=== PATIENT | female | born 1965 | race American Indian/Alaskan Native ===

== ENCOUNTER 2017-08-06 05:56 | Day surgery (SDC) | payer BC, OTHER ==
[~2017-08-06 05:56] MED LIST: APRESOLINE IV PRN; LACTATED RINGERS 1,000 ML IV SCH; MYLICON PO PRN; REGLAN IV PRN; ZOFRAN IV PRN
[2017-08-06] MEDS ORDERED: TRANSDERM-SCOP TD SCH (07:00)
[2017-08-06] MEDS ORDERED: FLAGYL 500 MG/100 ML 500 MG/100 ML BAG IV NR (07:00)
[2017-08-06] MEDS ORDERED: LOVENOX SUB-Q NR (07:00)
[2017-08-06] MEDS ORDERED: ANCEF/STERILE WATER 2 GM/20 ML 2 GM/20 ML SYRINGE IV NR (07:00)
[2017-08-06] MEDS ORDERED: PEPCID IV SCH (07:05)
[2017-08-06] MEDS ORDERED: DIPRIVAN 10 MG/ML IV ONE (07:08)
[2017-08-06] MEDS ORDERED: DILAUDID ONE (07:09)
[2017-08-06] MEDS ORDERED: XYLOCAINE MPF 2% ONE (07:09)
[2017-08-06] MEDS: ZOFRAN IV NR ×2 (07:13→09:39)
[2017-08-06] MEDS ORDERED: ZEMURON IV ONE (07:15)
[2017-08-06] MEDS ORDERED: SUBLIMAZE ONE (07:18)
[2017-08-06] MEDS ORDERED: DILAUDID IV PRN (07:22)
--- NOTE | 2017-08-06 07:22 | Anesthesia Consultation ---
Anesthesia Consult and Med Hx Date of service: 08/06/17 - Airway Anesthetic Teeth Evaluation: Good ROM Head & Neck: Adequate Mental/Hyoid Distance: Adequate Mallampati Class: Class I Intubation Access Assessment: Good - Pulmonary Exam CTA: Yes - Cardiac Exam Cardiac Exam: RRR - Pre-Operative Health Status ASA Pre-Surgery Classification: ASA3 Proposed Anesthetic Plan: General - Pulmonary Hx Smoking: No Hx Sleep Apnea: No (SLEEP STUDY NEG) - Central Nervous System Hx Back Pain: Yes Hx Psychiatric Problems: Yes - Gastrointestinal Hx Ulcer: Yes (PEPTIC ULCER DX) - Hematic Hx Anemia: Yes - Other Systems Hx Alcohol Use: No Hx Substance Use: No Hx Cancer: No - Additional Comments Anesthesia Medical History Comments: patient indicates that 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
--- NOTE | 2017-08-06 07:22 | Anesthesia Day of Surgery ---
Anesthesia Day of Surgery - Day of Surgery Patient Examined: Yes Patient H&P Reviewed: Yes Patient is NPO: Yes
[2017-08-06] MEDS ORDERED: MARCAINE 0.5% 30 ML INFILTRATI ONE (07:23)
[2017-08-06] MEDS ORDERED: XYLOCAINE 1% 20 mL ONE (07:24)
[2017-08-06] MEDS ORDERED: NACL 0.9% IR ONE (07:27)
[2017-08-06] MEDS ORDERED: MARCAINE 0.5% INFILTRATI ONE (07:27)
[2017-08-06] MEDS ORDERED: XYLOCAINE 1% 20 mL INFILTRATI ONE (07:27)
[2017-08-06] MEDS ORDERED: DECADRON ONE (08:01)
[2017-08-06] MEDS ORDERED: ROBINUL ONE (08:19)
[2017-08-06] MEDS ORDERED: NEOSTIGMINE ONE (08:19)
[2017-08-06] MEDS ORDERED: LACTATED RINGERS 1,000 ML ONE (08:21)
[2017-08-06] MEDS ORDERED: ePHEDrine SULFATE ONE (08:22)
[2017-08-06] MEDS ORDERED: TORADOL ONE (08:30)
--- NOTE | 2017-08-06 08:47 | Discharge Summary ---
Providers - Providers Date of Admission: 08/06/17 Date of discharge: 08/06/17 Attending physician: ENID CARBALLO Primary care physician: ALONDRA LEIGH Hospitalization Reason for admission: abdominal pain Condition: Good Pertinent studies: None Procedures: Diagnostic lap with Lysis of adhesions Disposition: - TO HOME OR SELFCARE Core Measure Documentation - Palliative Care Palliative Care/ Comfort Measures: Not Applicable - Core Measures Any of the following diagnoses?: none Exam - Constitutional General appearance: Present: no acute distress - EENT Eyes: Present: PERRL, EOM intact ENT: hearing intact, clear oral mucosa, dentition normal - Neck Neck: Present: supple, normal ROM - Respiratory Respiratory effort: normal Respiratory: bilateral: CTA - Cardiovascular Rhythm: regular - Extremities Extremities: no ischemia, pulses intact Peripheral Pulses: within normal limits - Abdominal General gastrointestinal: Present: soft, non-tender - Rectal Rectal Exam: deferred - Integumentary Integumentary: Present: clear, warm, dry - Musculoskeletal Musculoskeletal: strength equal bilaterally - Psychiatric Psychiatric: appropriate mood/affect Plan Follow up with: ALONDRA LEIGH MD [Primary Care Provider] - 7 Days
[2017-08-06] MEDS ORDERED: NORCO 5/325 PO NR (09:45)
[2017-08-06 10:18] VITALS: BP 128/64
--- NOTE | 2017-08-06 16:03 | Post Anesthesia Evaluation ---
- Post Anesthesia Evaluation Patient Participated: Yes Airway Patent: Yes Stable Respiratory Function: Yes Nausea/Vomiting: No Temp > 96.8F: Yes Pain Manageable: Yes Adequeate Hydration: Yes Anesthesia Complications: No
[2017-08-07] MEDS ORDERED: LOVENOX SUB-Q SCH (10:00)
== END 2017-08-06 10:30 | disposition home or self-care (01) ==
LOC: OR 05:56
PROVIDERS: ATTEND Specialist
DX: K66.0 Peritoneal adhesions (postprocedural) (postinfection) (principal); E11.9 Type 2 diabetes mellitus without complications; K59.00 Constipation, unspecified; M79.7 Fibromyalgia; K27.9 Peptic ulcer, site unspecified, unspecified as acute or chronic, without hemorrhage or perforation; Z88.5 Allergy status to narcotic agent; Z88.8 Allergy status to other drugs, medicaments and biological substances
CPT/HCPCS: 44180; 82962; C9250; J0690; J1100; J1170; J1650; J1885; J2405; J2704; J2710; J3010; J7120